=== PATIENT | male | born 1970 | race Caucasian/White ===

== ENCOUNTER 2025-02-09 10:16 | Emergency (ER) | payer BC ==
[2025-02-09 11:06] LABS: #Basophils 0.04 10x3/uL (0.0-0.2); #Eosinophils 0.09 10x3/uL (0.0-0.7); #Monocytes 0.84 10x3/uL (0.11-0.59); #Neutrophils 5.88 10x3/uL (1.40-6.50); %Basophils 0.5 % (0.0-1.0); %Eosinophils 1.1 % (0.0-10.0); %Lymphocytes 17.6 % (21.0-51.0); %Monocytes 10.1 % (0.0-10.0); %Neutrophils 70.5 % (42.0-75.0); Hematocrit 41.0 % (42.0-52.0); Hemoglobin 13.5 g/dL (14.0-18.0); Mean Corpuscular Hemoglobin 27.9 pg (27.0-31.0); Mean Corpuscular Volume 84.7 fL (78.0-98.0); Platelet Count 374 10x3/uL (130-400); Red Blood Cell (RBC) Count 4.84 mill/uL (4.70-6.10); White Blood Cell (WBC) Count 8.34 10x3/uL (4.8-10.8)
[2025-02-09 11:18] LABS: ALT (SGPT) 127 U/L (Less than 45); AST (SGOT) 65 U/L (11-34); Albumin 3.7 g/dL (3.1-4.5); Alkaline Phosphatase 111 U/L (40-110); Anion Gap 14 mmol/L (10-20); BUN (Urea Nitrogen) 28 mg/dL (8.4-25.7); Bilirubin, Total 0.7 mg/dL (0.3-1.2); Calc. Creatinine Clearance 0 mL/min (70-130); Calcium 9.3 mg/dL (7.8-10.44); Carbon Dioxide 23 mmol/L (22-29); Chloride 104 mmol/L (98-107); Globulin 3.2 g/dL (2.4-3.5); Glucose 202 mg/dL (70-105); Potassium 4.0 mmol/L (3.5-5.1); Sodium 137 mmol/L (136-145)
== END 2025-02-09 15:55 | disposition home or self-care (01) ==
LOC: ERS 10:16
DX: R07.89 Other chest pain (principal); I10 Essential (primary) hypertension; Z79.899 Other long term (current) drug therapy; Z79.82 Long term (current) use of aspirin
CPT/HCPCS: 71045; 80053; 84484; 85025; 93005; 94760